=== PATIENT | female | born 1985 | race African-American/Black ===

== ENCOUNTER 2016-08-08 09:57 | Emergency (ER) | payer OTHER ==
[~2016-08-08] VITALS: Ht 154.9 cm; Wt 64.5 kg
[~2016-08-08 09:57] MED LIST: ACIPHEX20 MG PO; AMLODIPINE BESY10 MG PO; AMOXICILLIN500 MG PO; APRESOLINE25 MG PO; APRESOLINE50 MG PO; ATIVAN1 MG PO; ATIVAN2 MG PO; Apresoline PO; Atarax,Vistaril PO; Augmentin PO; BENTYL10 MG PO; Benadryl PO; CALCIUM CITRATE PO; CARAFATE1 GM PO; CARAFATE100 MG/ML PO; CARDIZEM120 MG PO; CATAPRES-TTS 11 EACH TD; CATAPRES-TTS 21 EACH TD; CATAPRES-TTS 31 EACH TD; CELEXA10 MG PO; CIPRO500 MG PO; CIPROFLOXACIN500 M1 PO; CLEOCIN300 MG PO; CLINDAMYCIN HC300 MG PO; CLONIDINE1 EAC2 TD; COLACE10 MG/ML PO; COMPAZINE10 MG; COMPAZINE10 MG PO; COMPAZINE5 MG PO; Carafate PO; Cardizem CD,Cartia X PO; Colace PO; DICYCLOMINE HCL20 MG PO; DILAUDID; DILAUDID2 MG; DILAUDID2 MG PO; DILTIAZEM 24HR120 MG PO; ENDOCET 5-3251 EACH PO; ERYTHROMYCIN250 M1 PO; FAMOTIDINE20 M1 PO; FEOSOL325 MG PO; FEROSUL325 MG PO; FERRO-TIME325 MG PO; FERROUS SULFAT325 MG PO; Feosol PO; GLUCAGEN1 MG IM/SC; GLUCAGON1 MG IM; HUMALOG; HUMALOG (UNIT)1 UNIT; HUMALOG100 UNIT/1 SC; HUMALOG100 UNITS/ SC; HYDRALAZINE HCL25 MG PO; HYDRALAZINE HCL50 MG PO; HYDROCODON-ACE1 EAC7 PO; HYDROMORPHONE HC2 MG PO; INSULIN GLARGINE; IRON325 M1 PO; IRON325 MG PO; K-DUR20 MEQ PO; K-Dur PO; KLOR-CON M2020 MEQ PO; KLOR-CON20 MEQ PO; LABETALOL HCL100 MG PO; LABETALOL HCL200 MG PO; LANTUS; LANTUS (UNITS)1 UNIT SC; LANTUS 10100 UNITS/ SC; LANTUS 3 M100 UNITS/ SC; LANTUS 3 M100 UNITS1 SC; LANTUS100 UNIT/1 SQ; LEVEMIR FL100 UNIT/1 SC; LEVEMIR FL100 UNITS/ SC; LEVEMIR100 UNIT/2 SC; LEVOFLOXACIN750 MG PO; LISINOPRIL10 MG PO; LISINOPRIL20 MG PO; LISINOPRIL40 MG PO; LISINOPRIL5 MG PO; LOPRESSOR100 M1 PO; LORAZEPAM; Levaquin PO; METOCLOPRAMIDE10 MG PO; METOPROLOL TAR100 MG PO; MIRTAZAPINE15 MG PO; Maalox, Mylanta PO; Methadone HCl PO; NORCO 5/3251 TABLET PO; NORMODYNE,TRAN200 MG PO; NORVASC10 MG PO; NOVOLOG 10100 UNITS/ IV; NOVOLOG 10100 UNITS/ SC; NOVOLOG MI100 UNIT/4 SC; NOVOLOG PE100 UNITS/ SC; Norvasc PO; NovoLOG Pen 3 ml SC; OMEPRAZOLE40 M1 PO; OXYCODONE HCL5 MG PO; PANTOPRAZOLE SO40 MG PO; PERCOCET 5/31 TABLET PO; PHENADOZ25 MG PR; PHENERGAN25 MG PO; PHENERGAN25 MG PR; PHENERGAN50 MG PR; POTASSIUM CHLO20 ME1 PO; POTASSIUM CHLOR8 ME2 PO; PRINIVIL10 MG; PRINIVIL20 MG PO; PRINIVIL5 MG PO; PROMETHAZINE; PROMETHAZINE HC25 M1 PO; PROMETHAZINE HC25 M1 PR; PROMETHAZINE HC25 MG PR; PROMETHAZINE HC50 M1 PO; PROMETHEGAN25 MG PR; PROTONIX20 MG; PROTONIX20 MG PO; PROTONIX40 MG PO; Phenergan PO; PriLOSEC PO; Protonix PO; REGLAN10 MG PO; REGLAN5 MG PO; Reglan PO; SUCRALFATE1 GM PO; TRAMADOL HCL50 MG PO; TYLENOL EXTRA500 MG PO; TYLENOL650 MG PR; Tylenol Extra Streng PO; Tylenol PR; VITAMIN D250000 UNIT PO; ZESTRIL,PRINIVI10 MG PO; ZESTRIL10 MG PO; ZESTRIL20 MG PO; ZOFRAN4 MG PO; ZYVOX600 MG PO; Zestril,Prinivil PO; Zofran ODT SL; Zofran PO; celeXA PO
[2016-08-08 10:46] LABS: BASOPHIL COUNT 0.1 K/uL (0-0.1); EOSINOPHIL (%) 0.3 % (0-5); HEMATOCRIT 35.8 % (36.0-46.0); IMMATURE GRANULOCYTE (%) 0.4 % (0.0-0.7); IMMATURE GRANULOCYTE COUNT 0.1 K/uL; LYMPHOCYTE COUNT 2.6 K/uL (1.0-2.8); MCHC 34.1 G/DL (30.0-36.0); MCV 88.2 FL (83-99); MEAN PLAT.VOLUME 10.5 uM^3 (9.5-12.4); MONOCYTE (%) 7.1 % (3-12); MONOCYTE COUNT 0.8 K/uL (0-0.8); NEUTROPHIL (%) 69.4 % (45-76); PLATELET COUNT 268 K/uL (156-360); RBC DIS.WIDTH-CV 11.9 % (11.8-14.6); RBC DIS.WIDTH-SD 38.6 % (39-53); RED BLOOD COUNT 4.06 M/uL (3.80-5.20); WHITE BLOOD COUNT 11.5 K/uL (4.1-10.2)
[2016-08-08 10:57] LABS: CHLORIDE 96 mEq/L (99-109); POTASSIUM 3.4 mEq/L (3.7-5.4); SODIUM 140 mEq/L (136-147)
[2016-08-08 10:59] LABS: GLUCOSE 182 mg/dL (70-99)
[2016-08-08 11:01] LABS: ANION GAP 17 MEQ/L (2-14); TOTAL BILIRUBIN 0.6 mg/dL (0.0-1.0)
[2016-08-08 11:03] LABS: ALKALINE PHOSPHATASE 173 IU/L (3-129); GFR ESTIMATE (CALCULATED) 49 mL/min/
[2016-08-08 11:04] LABS: UREA NITROGEN (BUN) 36 mg/dL (9-23)
[2016-08-08 11:06] LABS: LIPASE 4 U/L (1.0-51.0)
[2016-08-08 11:12] LABS: QUANTITATIVE HCG < 4.0 MIU/ML
[2016-08-08 13:29] VITALS: BP 131/84
== END 2016-08-08 13:32 | disposition home or self-care (01) ==
LOC: EME 09:57
PROVIDERS: Emergency Medicine
DX: E11.43 Type 2 diabetes mellitus with diabetic autonomic (poly)neuropathy (principal); K31.84 Gastroparesis; E11.65 Type 2 diabetes mellitus with hyperglycemia; I10 Essential (primary) hypertension; K21.9 Gastro-esophageal reflux disease without esophagitis; Z79.4 Long term (current) use of insulin; Z86.14 Personal history of Methicillin resistant Staphylococcus aureus infection
CPT/HCPCS: 80053; 83690; 84702; 85025; 99281; 99284; J1170; J2270; J2550; J7030; J7050

== ENCOUNTER 2017-06-06 11:53 | Emergency (ER) | payer OTHER ==
[~2017-06-06] VITALS: Ht 154.9 cm; Wt 49.3 kg
[2017-06-06 12:32] LABS: HEMATOCRIT 35.9 % (36.0-46.0); HEMOGLOBIN 12.9 G/DL (11.9-15.5); MCH 31.7 PG (29.0-34.0); MCHC 35.9 G/DL (30.0-36.0); MCV 88.2 FL (83-99); PLATELET COUNT 273 K/uL (156-360); RBC DIS.WIDTH-CV 11.6 % (11.8-14.6); RBC DIS.WIDTH-SD 37.2 % (39-53); RED BLOOD COUNT 4.07 M/uL (3.80-5.20); WHITE BLOOD COUNT 8.7 K/uL (4.1-10.2)
[2017-06-06 13:19] LABS: ALBUMIN 4.9 G/DL (3.2-4.8); ALKALINE PHOSPHATASE 150 IU/L (3-129); ALT (GPT) 9 IU/L (3-49); AST (GOT) 11 IU/L (2-34); CHLORIDE 91 MEQ/L (99-109); CREATININE 1.5 MG/DL (0.6-1.3); GFR ESTIMATE (CALCULATED) 53 mL/min/; GLUCOSE 200 mg/dL (70-99); LIPASE < 3.0 U/L (1.0-51.0); POTASSIUM 3.2 MEQ/L (3.7-5.4); SODIUM 134 MEQ/L (136-147); TOTAL BILIRUBIN 0.8 MG/DL (0.0-1.0); TOTAL PROTEIN 8.2 G/DL (6.4-8.3); UREA NITROGEN (BUN) 26 mg/dL (9-23)
[2017-06-06 17:00] LABS: QUANTITATIVE HCG < 4.0 MIU/ML
[2017-06-06 18:38] VITALS: BP 106/66
== END 2017-06-06 18:39 | disposition home or self-care (01) ==
LOC: EME 11:53
PROVIDERS: Emergency Medicine Emergency Medical Services
DX: R11.2 Nausea with vomiting, unspecified (principal); E86.0 Dehydration; R10.84 Generalized abdominal pain; E11.43 Type 2 diabetes mellitus with diabetic autonomic (poly)neuropathy; I10 Essential (primary) hypertension; K21.9 Gastro-esophageal reflux disease without esophagitis; Z79.4 Long term (current) use of insulin; Z95.828 Presence of other vascular implants and grafts; Z87.19 Personal history of other diseases of the digestive system; Z86.14 Personal history of Methicillin resistant Staphylococcus aureus infection; Z88.2 Allergy status to sulfonamides
CPT/HCPCS: 80053; 82948; 83690; 84702; 85027; 99281; 99285; J0780; J2405; J3010; J7040